=== PATIENT | male | born 1990 | race African-American/Black ===

== ENCOUNTER 2016-12-20 19:28 | Emergency (ER) | payer MEDICARE, OTHER ==
--- NOTE | ~2016-12-20 | CR72 ---
[facility] A Service of [facility] & [facility] RADIOLOGY TEXT RESULTS PATIENT: LAURENCE LÓPEZ LOCATION: [facility] : 88 UNIT #: [id number] AGE: [address]: Dennis Barger MD SEX: M ORDER DR: [id number] [facility] [address] [place], [place] [address] [id number] MR#: [id number] Acc #: [id number] NAME: LAURENCE LÓPEZ : 1990 SEX: M STUDY DATE/TIME: 12/20/2016 19:21 UNIT: [facility] ROOM: STUDY DESCRIPTION: CR Chest Single View Portable Attending Physician: Dennis Barger M.D. Ordering Physician: Dennis Barger M.D. MEDICAL IMAGING REPORT This report is preliminary unless electronic signature is present EXAM Single view chest dated 12/20/2016 COMPARISON None. HISTORY Chest pain on the left side for 2 days. FINDINGS A single AP portable view of the chest shows both lungs to be clear. The heart is normal in size. The mediastinal contour is normal. No significant bone abnormalities are seen. IMPRESSION Normal portable chest. Dictated by... Leroy Lazar M.D. THIS IS AN ELECTRONICALLY VERIFIED REPORT Leroy Lazar M.D. at 12/23/2016 1:39 PM CPR/mjs TD: 12/21/2016 13:40 JOB #: [id number] MEDICAL IMAGING REPORT Page 1 of 1 COPY
--- NOTE | ~2016-12-20 | EKG ---
PATIENT: LAURENCE LÓPEZ UNIT #: [id number] Ventricular Rate: 78 BPM Atrial Rate: 78 BPM P-R Interval: 168 ms QRS Duration: 92 ms Q-T Interval: 388 ms QTC Calculation(Bezet): 442 ms P Callahan: 35 degrees Calculated R Callahan: 13 degrees Calculated T Callahan: 16 degrees Diagnosis Line: Normal sinus rhythm Diagnosis Line: Possible Left atrial enlargement Diagnosis Line: Left ventricular hypertrophy Diagnosis Line: Nonspecific ST and T wave abnormality Diagnosis Line: Abnormal ECG Diagnosis Line: No previous ECGs available Diagnosis Line: Confirmed by VANNESSA MARI MD ([id number]) on Diagnosis Line: 12/21/2016 4:54:30 PM INTERPRETING MD: CHRIS
[2016-12-20 19:29] LABS: BASOPHIL% 0.5 % (0-2.5); EOSINOPHIL# 0.1 X10e3 (0-0.7); HEMATOCRIT 45.5 % (38.0-50.0); HEMOGLOBIN 15.1 gm/dL (13.0-16.0); LYMPHOCYTE# 1.9 X10e3 (1.0-3.5); LYMPHOCYTE% 32.6 % (17.0-45.0); MEAN CELL VOLUME 95.5 FL (83-96); MEAN CORPUSCULAR HEMOGLOBIN 31.7 PG (28-34); MEAN CORPUSCULAR HGB CONC 33.2 g/dL (30-36); MEAN PLATELET VOLUME 8.1 FL (6.5-11.5); MONOCYTE% 16.5 % (3.0-12.0); NEUTROPHIL# 2.9 X10e3 (1.5-7.1); NEUTROPHIL% 49.4 % (40-75); PLATELET COUNT 213 X10e3 (140-420); RED BLOOD COUNT 4.76 X10e (3.90-5.60); RED CELL DISTRIBUTION WIDTH 14.2 % (11.0-15.5); WHITE BLOOD COUNT 5.8 X10e3 (4.0-10.5)
[2016-12-20 19:34] LABS: DIFF IND NO
[2016-12-20 19:44] LABS: POC - CKMB <1.0 ng/mL (0.0-7.9); POC - TROPONIN <0.05 ng/mL (<=0.05)
[2016-12-20 19:51] LABS: ALBUMIN SERUM 4.4 g/dL (3.5-5.0); BILIRUBIN, DIRECT 0.1 mg/dL (0.0-0.2); BILIRUBIN,INDIRECT 0.5 mg/dL (0.0-0.9); BILIRUBIN,TOTAL 0.6 mg/dL (0.2-2.0); CALCIUM SERUM 9.4 mg/dL (8.4-10.2); POTASSIUM 3.6 mmol/L (3.5-5.1); PROTEIN TOTAL SERUM 7.7 g/dL (6.0-8.3)
== END 2016-12-20 20:48 | disposition home or self-care (01) ==
LOC: CED 19:28
PROVIDERS: Emergency Medicine
DX: R07.2 Precordial pain (principal); F41.9 Anxiety disorder, unspecified; I10 Essential (primary) hypertension; F17.210 Nicotine dependence, cigarettes, uncomplicated
CPT/HCPCS: 36415; 71010; 80048; 80076; 82553; 84484; 85025; 93005; 96374; 99284; J2060